=== PATIENT | female | born 2005 | race Caucasian/White ===

== ENCOUNTER 2024-05-04 12:48 | Outpatient (AMB) | payer OTHER, SELFPAY ==
--- NOTE | 2024-05-04 12:57 | A.OFFVIS_ITS ---
Vital Signs 3 05/04/24 13:03 Height 5 ft Weight 92 lb 9.506 oz BMI 18.1 BP 98/62 Blood Pressure Location Rt brachial Position Sitting Pulse 80 Pulse Source Pulse Oximeter Pulse Oximetry (%) 99 Oxygen Delivery Method Room Air Intake Visit Reasons: + MALOU Intake Note: New pt presents today for +MALOU consult. Reports rashes, sleep disturbance, fatigue, getting sick all the time. Denies FH autoimmune disorder Preparation Supervisor Required: No Accompanied by: Self / Same As Patient Allergies amoxicillin Allergy (Verified 05/04/24 13:05) Unknown Medication List - Last Reconciled 05/04/24 by Sher Main MD No Known Home Meds HPI Comments Details: This is a 19-year-old female who presents for evaluation of a positive MALOU. She was found to have a positive MALOU when she was getting worked up for leukopenia by heme/Onc. Per patient nothing specific was found by heme/oncologist. Patient states that over the last year she has been having recurrent bronchitis episodes. The 1st episode was treated with antibiotics without much relief. She does not recall getting any steroids. She also states that she has been having night sweats. Her sleep cycle has been dysregulated. On certain days she sleeps more than 12 hours and feels like she needs to sleep more, other days she can only sleep for 2 hours then get insomnia. She would have low-grade fevers with her bronchitis episodes. She has noticed skin rashes on the flexor aspect of her elbows and behind both knees. They burn more than they itch. Hydrocortisone cream provides little relief. Patient denies any weight loss. She has always been thin. She denies any blood or froth in urine. Denies any history of DVT/PE. She has never been . [facility] Medical History (Updated 05/04/24 @ 13:32 by Sher Main MD) Leukopenia Anxiety MALOU positive Surgical History No history of previous surgery Family History Father Thyroid disease Afib Maternal Grandmother Cervical cancer Cerebral aneurysm Paternal Grandmother Lung cancer Mother No problems noted. Other Family history of diabetes mellitus Female Reproductive History Menstrual control method: other Age of menopause: 11 Total pregnancies: 0 Review of Systems Const Reports fatigue, Reports weakness, Denies weight gain and Denies weight loss Eyes Reports blurry vision Card Reports dyspnea Resp Reports cough and Reports dyspnea GI Reports constipation, Reports heartburn and Reports nausea Reports vaginal dryness Musc Denies arthralgias, Denies joint swelling and Denies stiffness Skin/Breast Denies photosensitivity and Reports rash Neuro Reports weakness Psych Reports abnormal sleep pattern, Reports anxiety, Reports depression and Reports mood swings Endo Reports fatigue and Reports polydipsia Physical Exam Vital Signs: Last Vital Signs Pulse 80 05/04/24 13:03 BP 98/62 05/04/24 13:03 Pulse Ox 99 05/04/24 13:03 Oxygen Delivery Method Room Air 05/04/24 13:03 BMI result Body Mass Index 18.1 Const General: cooperative, healthy appearing and comfortable Nutritional Appearance: thin Orientation/consciousness: patient oriented x3 Limitations: no limitations HEENT Head: Yes normocephalic and Yes atraumatic Mouth: moist mucous membranes Resp Effort & Inspection: normal respiratory effort and able to speak in complete sentences Auscultation: clear to auscultation bilaterally Cardio Rate: regular rate Rhythm: regular rhythm Skin Other: Neuro General: patient oriented x3 Extrem Other: No active synovitis No tender joints No myofascial tender points Normal nailfold capillaroscopy Assessment & Plan Assessment & Plan (1) MALOU positive: Code(s): R76.8 - Other specified abnormal immunological findings in serum Category: Medical Plan: This is a 19-year-old female who presents for evaluation of a positive MALOU 1-320 speckled pattern. This was in the context of leukopenia. Patient has had chronic mild leukopenia. Over the last year she has had recurrent bronchitis episodes, night sweats, rashes on her forearm and behind both knees. Will order comprehensive serology to screen for underlying autoimmune rheumatic disease. Follow-up in 5-6 weeks Plan I spent 47 minutes reviewing patient's chart, evaluating patient, ordering diagnostic workup, counseling patient and documenting in the chart Orders: Orders 2 Anti Extractable Nuclear Ag Today M32.9 - Systemic lupus erythematosus, unspecified Complement C3 Today M32.9 - Systemic lupus erythematosus, unspecified Complement C4 Today M32.9 - Systemic lupus erythematosus, unspecified C Reactive Protein Today M32.9 - Systemic lupus erythematosus, unspecified DNA Double Stranded-Crithidia Today M32.9 - Systemic lupus erythematosus, unspecified Sjogren's Antibodies Today M32.9 - Systemic lupus erythematosus, unspecified UA w Microscopic Today M32.9 - Systemic lupus erythematosus, unspecified Complete Blood Count Auto Diff Today M32.9 - Systemic lupus erythematosus, unspecified Angiotensin Converting Enzyme Today M32.9 - Systemic lupus erythematosus, unspecified Hepatitis A,B,C Profile Today M32.9 - Systemic lupus erythematosus, unspecified Protein Electrophoresis, Serum Today M32.9 - Systemic lupus erythematosus, unspecified T Spot TB Today M32.9 - Systemic lupus erythematosus, unspecified Cardiolipin Antibodies Today R76.0 - Raised antibody titer Immunoglobulin A Today R14.0 - Abdominal distension (gaseous) Transglutaminase Ab IgG Today R14.0 - Abdominal distension (gaseous) Rheumatoid Factor Today M25.50 - Pain in unspecified joint Cyclic Citrullinated Peptide Today M25.50 - Pain in unspecified joint Thyroid Peroxidase Antibodies Today E07.9 - Disorder of thyroid, unspecified MALOU Reflex Titer and Pattern Today M32.9 - Systemic lupus erythematosus, unspecified Anti DNA DS Antibody Today M32.9 - Systemic lupus erythematosus, unspecified Erythrocyte Sedimentation Rate Today M32.9 - Systemic lupus erythematosus, unspecified Protein Creatinine Ratio, Ur Today M32.9 - Systemic lupus erythematosus, unspecified Comprehensive Met. Panel Today M32.9 - Systemic lupus erythematosus, unspecified Immunofixation Pnl, Serum Today M32.9 - Systemic lupus erythematosus, unspecified Beta-2 Glycoprotein Antibody Today R76.0 - Raised antibody titer Lupus Anticoagulant Panel Today R76.0 - Raised antibody titer Endomysial IgA rflx Titer Today R14.0 - Abdominal distension (gaseous) Thyroglobulin Antibodies Today E07.9 - Disorder of thyroid, unspecified TSH reflex Free T4 Today E07.9 - Disorder of thyroid, unspecified Coding Level of Care Code New Pt Level 4 (30342) Diagnoses MALOU positive R76.8
[2024-05-04 13:03] VITALS: BP 98/62; PULSE 80; O2SAT 99; BMI 18.1
== END 2024-05-04 13:20 | disposition home or self-care (01) ==
PROVIDERS: PCP Physician Assistant Medical; Referring Provider Physician Assistant Medical; Visit Provider Student in an Organized Health Care Education/Training Program
DX: R76.8 Other specified abnormal immunological findings in serum (principal)
CPT/HCPCS: 99204

== ENCOUNTER → 2024-05-04 12:48 | Outpatient (BNVA) | payer OTHER, SELFPAY | PROVIDERS: PCP Physician Assistant Medical; Visit Provider Student in an Organized Health Care Education/Training Program | DX: R76.8 Other specified abnormal immunological findings in serum (principal); D72.819 Decreased white blood cell count, unspecified | CPT/HCPCS: 99202 ==